=== PATIENT | male | born 1945 | race Caucasian/White ===

== ENCOUNTER 2020-09-14 17:09 | Emergency (ER) | payer BC ==
[~2020-09-14] VITALS: Ht 177.8 cm; Wt 63.6 kg
[2020-09-14] MEDS ORDERED: ACETAMINOPHEN 500 MG TABLET PO ONE (18:30)
[2020-09-14 20:45] VITALS: BP 117/62
== END 2020-09-14 21:00 | disposition home or self-care (01) ==
LOC: EDBD 17:09 → EMS 17:09
DX: S80.02XA Contusion of left knee, initial encounter (principal); W19.XXXA Unspecified fall, initial encounter; Y93.89 Activity, other specified; Y92.89 Other specified places as the place of occurrence of the external cause; Y99.8 Other external cause status